=== PATIENT | male | born 1975 | race African-American/Black ===

== ENCOUNTER 2017-02-02 18:43 | Emergency (ER) | payer MEDICAID ==
[~2017-02-02] VITALS: Ht 182.9 cm; Wt 131.5 kg
[2017-02-03] MEDS ORDERED: KETOROLAC TROMETH 60MG/2ML VIAL IM ONE (07:30)
[2017-02-03 07:35] VITALS: BP 142/88
== END 2017-02-03 07:46 | disposition home or self-care (01) ==
LOC: ER 18:47
DX: G89.29 Other chronic pain (principal); M54.5 Low back pain; I10 Essential (primary) hypertension; Z76.0 Encounter for issue of repeat prescription
CPT/HCPCS: 96372; 99283; J1885

== ENCOUNTER 2017-05-30 09:58 | Emergency (ER) | payer MEDICAID ==
[~2017-05-30] VITALS: Ht 188 cm; Wt 141.1 kg
[2017-05-30 10:42] VITALS: BP 143/83
[2017-05-30] MEDS ORDERED: KETOROLAC TROMETH 60MG/2ML VIAL IM ONE (11:00)
== END 2017-05-30 11:12 | disposition home or self-care (01) ==
LOC: ER 09:58
DX: L72.3 Sebaceous cyst (principal); L08.9 Local infection of the skin and subcutaneous tissue, unspecified; G89.29 Other chronic pain; M25.561 Pain in right knee; I10 Essential (primary) hypertension
CPT/HCPCS: 96372; 99283; J1885

== ENCOUNTER 2025-02-06 19:07 | Emergency (ER) | payer MEDICAID, SELFPAY ==
[~2025-02-06] VITALS: Ht 182.9 cm; Wt 106.2 kg
--- NOTE | 2025-02-06 19:35 | ED.PDOC ---
History of Present Illness(SKN HPI Comments C/C of rash to right buttock x7 days. Pt states it felt like an abscess, squeezed skin and discharge was produced. Denies odor or pain. Wound dry and not draining at this time. Time Seen by MD: 19:11 Primary Care Provider: [facility] History of Present Illness: Nurses Notes, Medications, Allergies Allergies: Coded Allergies: NO KNOWN ALLERGIES (Unverified , 07/05/14) Home Meds Active Scripts Clotrimazole W/ Betamethasone (Clotrimazole/Betamethason 1-0.05 %) 1 Cre Cre, 1 APPLIC EX BID for 10 Days, #15 GRAMS Prov:MO DINH [facility] 02/06/25 Information Source: Patient Past Medical History PAST MEDICAL HISTORY: HTN Surgical History: Denies all surgeries Family History Family History: Unobtainable Social History Smoker: Non-Smoker Alcohol: Denies ETOH Use Drugs: Denies Drug Use Lives In: Home Constitutional: denies: chills, diaphoresis, fatigue, fever, malaise, sweats, weakness, others EENTM: denies: blurred vision, double vision, ear bleeding, ear discharge, ear drainage, ear pain, ear ringing, eye pain, eye redness, hearing loss, mouth pain, mouth swelling, nasal discharge, nose bleeding, nose congestion, nose pain, photophobia, tearing, throat pain, throat swelling, voice changes, others Respiratory: denies: cough, hemoptysis, orthopnea, SOB at rest, shortness of breath, SOB with excertion, stridor, wheezing, others Cardiovascular: denies: chest pain, dizzy spells, diaphoresis, Dyspnea on exertion, edema, irregular heart beat, left arm pain, lightheadedness, palpitations, PND, syncope, others Gastrointestinal: denies: abdomen distended, abdominal pain, blood streaked bowels, constipated, diarrhea, dysphagia, difficulty swallowing, hematemesis, melena, nausea, poor appetite, poor fluid intake, rectal bleeding, rectal pain, vomiting, others Genitourinary: denies: burning, dysuria, flank pain, frequency, hematuria, incontinence, penile discharge, penile sore, pain, testicle pain, testicle swelling, urgency, others Neurological: denies: dizziness, fainting, headache, left sided numbness, left sided weakness, numbness, paresthesia, pre-existing deficit, right sided numbness, right sided weakness, seizure, speech problems, tingling, tremors, weakness, others Musculoskeletal: denies: back pain, gout, joint pain, joint swelling, muscle pain, muscle stiffness, neck pain, others Integumetry: reports: rash (CENTER LOWER BACK ); denies: bruises, change in color, change in hair/nails, dryness, laceration, lesions, lumps, wounds, others Allergic/Immunocompromised: denies: Difficulty Healing, Frequent Infections, Hives, Itching, others Hematologic/Lymphatic: denies: anemia, blood clots, easy bleeding, easy bruising, swollen glands, others Endocrine: denies: excessive hunger, excessive sweating, excessive thirst, excessive urination, flushing, intolerance to cold, intolerance to heat, unexplained weight gain, unexplained weight loss, others Psychiatric: denies: anxiety, bipolar disorder, depression, hopeless, panic disorder, schizophrenia, sleepless, suicidal, others Physical Exam General Appearance: No Apparent Distress, Normal HEENT: Pharynx Normal Neck: Full Range of Motion, Non-Tender Respiratory: Lungs Clear, No Respiratory Distress, Normal Breath Sounds Cardiovascular: No Murmur, Normal Peripheral Pulses, Regular Rate/Rhythm Breast Exam: Deferred Gastrointestinal: Non Tender, Soft Genitalia: Deferred Pelvic: Deferred Rectal: Deferred Extremities: Normal range of motion, Non-tender Musculoskeletal : Apperance: Normal Neurologic: Alert, No Motor Deficits, Normal Affect, Normal Mood, No Sensory Deficits Cerebellar Function: Normal Reflexes: Normal Skin: Dry, Normal Color, Rash (ERYTHEMIC INDURATED RASH CENTER LOWER BACK AND INTO THE GLUTEAL FULL NOTED EXCORIATIONS NO NOTED DRAINAGE OR STREAKING), Warm Lymphatic: No Adenopathy Was a procedure done? Was a procedure done?: No Differential Diagnosis (INTG) Differential Diagnosis: Atopic dermatitis, Herpes Zoster/Simplex, Impetigo, Molluscum contagiosum, Tinea X-Ray, Labs, Meds, VS Vital Signs Date Time Temp Pulse Resp B/P (MAP) Pulse Ox O2 Delivery O2 Flow Rate FiO2 02/06/25 19:30 97.8 89 17 150/104 (119) 98 97.8 Time of 1ST Reevaluation: 19:32 Reevaluation 1ST: Unchanged Time of 2ND Reevaluation: 19:42 Reevaluation 2ND: Unchanged Patient Education/Counseling: Diagnosis, Treatment, Prognosis, Need For Follow Up Family Education/Counseling: No Family Present Departure 1 Departure Time of Disposition: 19:40 Impression: Primary Impression: Tinea Disposition: 01 HOME / SELF CARE / HOMELESS Condition: Stable e-Prescriptions Clotrimazole W/ Betamethasone (Clotrimazole/Betamethason 1-0.05 %) 1 Cre Cre 1 APPLIC EX BID for 10 Days, #15 GRAMS Prov: MO DINH 02/06/25 Discharged With: Self Critical Care Note Critical Care Time?: No Stability Stability form required: MO Solares Feb 06, 2025 19:35
[2025-02-06] MEDS ORDERED: CLOTCRE3 EX (19:42)
[2025-02-06] MEDS ORDERED: VALA1TAB PO (20:39)
[2025-02-06 21:20] VITALS: BP 147/87; PULSE 86; RESP 16; TEMP 97.9; O2SAT 99
[2025-02-09 23:07] LABS: HSV 1 IgG Antibody Non Reactive (Non Reactive); HSV 2 IgG Antibody Reactive (Non Reactive)
== END 2025-02-06 21:30 | disposition home or self-care (01) ==
LOC: ER 19:07
DX: B35.9 Dermatophytosis, unspecified (principal); I10 Essential (primary) hypertension
CPT/HCPCS: 86695; 86696

== ENCOUNTER 2025-06-23 16:21 | Emergency (ER) | payer SELFPAY ==
[~2025-06-23] VITALS: Ht 182.9 cm; Wt 105.1 kg
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
[2025-06-23] MEDS ORDERED: IBUP-1456 PO (19:14)
[2025-06-23] MEDS ORDERED: CYCL-837 PO (19:14)
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
[2025-06-23] MEDS: KETOROLAC TROMETH 60MG/2ML VIAL IM ONE (19:23)
[2025-06-23 19:32] VITALS: BP 143/98; PULSE 73; RESP 16; TEMP 98.2; O2SAT 98
== END 2025-06-23 19:47 | disposition home or self-care (01) ==
LOC: ER 16:21
DX: S46.912A Strain of unspecified muscle, fascia and tendon at shoulder and upper arm level, left arm, initial encounter (principal); S83.92XA Sprain of unspecified site of left knee, initial encounter; I10 Essential (primary) hypertension; V89.2XXA Person injured in unspecified motor-vehicle accident, traffic, initial encounter; Y93.I9 Activity, other involving external motion; Y92.488 Other paved roadways as the place of occurrence of the external cause; Y99.8 Other external cause status
CPT/HCPCS: 29505; 73030; 73562; 96372; 99284; J1885